=== PATIENT | female | born 1975 | race Caucasian/White ===

== ENCOUNTER 2021-03-09 17:08 | Emergency (ER) | payer BC, OTHER ==
[2021-03-09] MEDS ORDERED: NS 0.9% w/ 40 MEQ KCL 1,000 ML BAG IV ONE (17:09)
[2021-03-09] MEDS ORDERED: Morphine 4 MG/ML VIAL ONE (18:04)
[2021-03-09 19:08] LABS: #Basophils 0.1 thou/uL (0.0-0.2); #Eosinphils 0.2 thou/uL (0.0-0.7); #Lymphocytes 2.8 thou/uL (1.20-3.40); #Monocytes 0.5 thou/uL (0.11-0.59); %Eosinophils 2.5 % (0.0-10.0); %Lymphocytes 36.9 % (21.0-51.0); %Monocytes 6.6 % (0.0-10.0); %Neutrophils 52.9 % (42.0-75.0); Hemoglobin 14.4 g/dL (12.0-16.0); Mean Corpuscular HGB CONC 33.3 g/dL (32.0-36.0); Mean Corpuscular Hemoglobin 30.8 pg (27.0-31.0); Mean Corpuscular Volume 92.4 fL (78.0-98.0); Mean Platelet Volume 7.1 fL (7.4-10.4); Platelet Count 342 thou/uL (130-400); RBC Distribution Width 13.6 % (11.5-14.5); Red Blood Cell (RBC) Count 4.69 mill/uL (4.20-5.40); White Blood Cell (WBC) Count 7.6 thou/uL (4.8-10.8)
[2021-03-09 19:23] LABS: ALT (SGPT) 17 U/L (8-55); AST (SGOT) 14 U/L (5-34); Albumin 4.3 g/dL (3.5-5.0); Alkaline Phosphatase 95 U/L (40-110); Anion Gap 14 mmol/L (10-20); BUN (Urea Nitrogen) 10 mg/dL (7.0-18.7); Bilirubin, Total 0.8 mg/dL (0.2-1.2); Calc. Creatinine Clearance 0 mL/min (70-130); Calcium 9.4 mg/dL (7.8-10.44); Carbon Dioxide 16 mmol/L (22-29); Chloride 113 mmol/L (98-107); Globulin 3.7 g/dL (2.4-3.5); Glucose 86 mg/dL (70-105); Lipase 52 U/L (8-78); Sodium 140 mmol/L (136-145)
[2021-03-09] MEDS ORDERED: HYDROcodone/Acetaminophen 5/325 mg Tablet ONE (19:33)
[2021-03-09] MEDS ORDERED: Ondansetron ODT 4 MG TAB ONE (19:33)
[2021-03-09 19:42] LABS: Potassium 2.8 mmol/L (3.5-5.1)
[2021-03-09] MEDS ORDERED: diphenhydrAMINE 50 MG/ML VIAL ONE (20:31)
[2021-03-09] MEDS ORDERED: Fentanyl 100 MCG/2 ML VIAL ONE ×2 (20:31→22:42)
[2021-03-09] MEDS ORDERED: Potassium Chloride 20 MEQ TAB ONE ×2 (20:31→20:39)
[2021-03-09 20:37] LABS: Bilirubin Negative (Negative); Blood, Urine Moderate (Negative); Clarity Clear (Clear); Glucose, Urine (Dipstick) Negative (Negative); Ketone, Urine Negative (Negative); Leukocyte Small (Negative); Nitrite Positive (Negative); Protein, Urine (Dipstick) 30 mg/dL (Neg-Trace); Specific Gravity, Urine 1.015 (1.005-1.030); Urobilinogen 0.2 mg/dL (Less than 2)
[2021-03-09 20:45] LABS: Bacteria/HPF 2+ HPF (None Seen); Mucous/LPF 1+ LPF (<2+); Squamous Epithelial 0-3 HPF (0-3)
[2021-03-09 22:16] LABS: SARS-CoV-2 NAA Rapid Test Not Detected (NotDetected)
[2021-03-10] MEDS ORDERED: Ondansetron PF 4 MG/2 ML Vial ONE (00:20)
== END 2021-03-10 00:44 | disposition short-term general hospital (02) ==
LOC: BURERS 17:08
DX: E87.6 Hypokalemia (principal); N39.0 Urinary tract infection, site not specified; Z20.822 Contact with and (suspected) exposure to COVID-19; Z87.891 Personal history of nicotine dependence
CPT/HCPCS: 36415; 74176; 80053; 81003; 81015; 83605; 83690; 83735; 85025; 93005; 96374; 96375; 96376; J1200; J2270; J2405; J3010; J3480; Q0162; U0002